=== PATIENT | male | born 1970 | race Caucasian/White ===

== ENCOUNTER 2020-06-20 10:12 | Emergency (ER) | payer SELFPAY ==
[~2020-06-20] VITALS: Ht 170.2 cm; Wt 82.0 kg
[2020-06-20] MEDS ORDERED: CYCLOBENZAPRINE10 MG PO (12:53)
[2020-06-20] MEDS ORDERED: NAPROXEN500 MG PO (12:53)
[2020-06-20 13:18] VITALS: BP 131/79
== END 2020-06-20 13:18 | disposition home or self-care (01) | DRG 552 ==
LOC: ED 10:12
DX: M51.26 Other intervertebral disc displacement, lumbar region (principal); J45.909 Unspecified asthma, uncomplicated; F17.210 Nicotine dependence, cigarettes, uncomplicated

== ENCOUNTER 2020-09-07 12:13 | Emergency (ER) | payer SELFPAY ==
[~2020-09-07 12:13] MED LIST: CYCLOBENZAPRINE10 MG PO; NAPROXEN500 MG PO
[2020-09-07] MEDS ORDERED: IBUPROFEN600 MG PO (14:29)
[2020-09-07 14:50] VITALS: BP 134/53
== END 2020-09-07 14:53 | disposition home or self-care (01) | DRG 558 ==
LOC: ED 12:13
DX: M76.822 Posterior tibial tendinitis, left leg (principal); J45.909 Unspecified asthma, uncomplicated; F17.210 Nicotine dependence, cigarettes, uncomplicated

== ENCOUNTER 2020-11-27 06:27 | Emergency (ER) | payer SELFPAY ==
[~2020-11-27] VITALS: Ht 170.2 cm; Wt 81.0 kg
[~2020-11-27 06:27] MED LIST changes: +IBUPROFEN600 MG PO
[2020-11-27 07:05] LABS: HEMATOCRIT 29.6 % (39.0-50.0); IMMATURE GRANULOCYTES 0.1 % (0.0-5.0); MEAN CELL VOLUME 59.6 fL CALC (80.0-100.0); MEAN CORPUSCULAR HGB 16.1 pG CALC (26.0-32.0); NEUT# 5.68 thou/uL (1.82-7.42); RED BLOOD COUNT 4.97 mill/uL (4.70-6.10); RED CELL DISTRI WIDTH 21.8 % (11.5-15.5)
[2020-11-27 07:20] LABS: ALBUMIN 4.3 g/dL (3.2-5.0); ALKALINE PHOSPHATASE 68 u/l (38-126); AMYLASE 50 u/l (30-110); ANION GAP 15 (6-22 (CALC)); BILIRUBIN, TOTAL 0.4 mg/dL (0.0-1.4); BUN 10 mg/dL (9-20); BUN/CREATININE RATIO 11 (12-20 (CALC)); CARBON DIOXIDE 23 mmol/l (22-30); CHLORIDE 101 mmol/l (95-108); CREATININE 0.9 mg/dL (0.7-1.3); GFR > 60 ML/MIN (>=60 (CALC)); GFR FOR AFR.AMER. > 60 ML/MIN (>=60 (CALC)); LIPASE 71 u/l (23-300); POTASSIUM 4.3 mmol/l (3.5-5.1); SGOT/AST 26 u/l (17-59); SODIUM 135 mmol/l (137-146); TOTAL PROTEIN 7.5 g/dL (6.3-8.2)
[2020-11-27 07:32] LABS: MYOGLOBIN 35 ng/mL (0 - 121)
[2020-11-27 10:43] LABS: URINE BILIRUBIN - DIPSTICK NEGATIVE (NEGATIVE); URINE BLOOD DIPSTICK NEGATIVE (NEGATIVE); URINE COLOR YELLOW; URINE GLUCOSE - DIPSTICK NEGATIVE (NEGATIVE); URINE KETONE NEGATIVE (NEGATIVE); URINE LEUK ESTERASE NEGATIVE (NEGATIVE); URINE NITRITE - DIPSTICK NEGATIVE (Negative); URINE PROTEIN - DIPSTICK NEGATIVE (NEG-TRACE); URINE SPECIFIC GRAVITY <=1.005; URINE UROBILINOGEN - DIPSTICK 0.2 E.U./dL (0.2)
[2020-11-27] MEDS ORDERED: ZOFRAN4 MG/TAB PO (13:24)
[2020-11-27] MEDS ORDERED: TORADOL PO (13:24)
[2020-12-01 10:41] VITALS: BP 94/68
== END 2020-11-27 13:44 | disposition home or self-care (01) | DRG 395 ==
LOC: ED 06:27
PROVIDERS: Emergency Medicine
DX: K63.9 Disease of intestine, unspecified (principal); J45.909 Unspecified asthma, uncomplicated; F17.210 Nicotine dependence, cigarettes, uncomplicated; Z20.822 Contact with and (suspected) exposure to COVID-19
CPT/HCPCS: Q9967

== ENCOUNTER 2020-12-18 12:56 | Inpatient (IN) | payer SELFPAY ==
[~2020-12-18] VITALS: Ht 170.2 cm; Wt 75.0 kg
[~2020-12-18 12:56] MED LIST changes: +TORADOL PO; +ZOFRAN4 MG/TAB PO
--- NOTE | 2020-12-18 13:10 | NUR ---
PATIENT TO ROOM VIA WHEELCHAIR AND PHYSICIAN AT BEDSIDE FOR EVAL
[2020-12-18 14:12] LABS: HEMATOCRIT 25.9 % (39.0-50.0); IMMATURE GRANULOCYTES 0.1 % (0.0-5.0); MEAN CORPUSCULAR HGB 16.3 pG CALC (26.0-32.0); MEAN CORPUSCULAR HGB CONC 26.3 g/dL CAL (32.0-36.0); NEUT# 4.69 thou/uL (1.82-7.42); RED BLOOD COUNT 4.18 mill/uL (4.70-6.10)
[2020-12-18 14:14] LABS: HEMOGLOBIN 6.8 g/dl (14.0-18.0)
[2020-12-18 14:18] LABS: ALKALINE PHOSPHATASE 63 u/l (38-126); AMYLASE 53 u/l (30-110); ANION GAP 12 (6-22 (CALC)); BILIRUBIN, TOTAL 0.3 mg/dL (0.0-1.4); BUN 6 mg/dL (9-20); BUN/CREATININE RATIO 7 (12-20 (CALC)); CARBON DIOXIDE 27 mmol/l (22-30); CHLORIDE 102 mmol/l (95-108); CREATININE 0.8 mg/dL (0.7-1.3); GFR > 60 ML/MIN (>=60 (CALC)); GFR FOR AFR.AMER. > 60 ML/MIN (>=60 (CALC)); LIPASE 104 u/l (23-300); POTASSIUM 4.6 mmol/l (3.5-5.1); SGOT/AST 30 u/l (17-59); SODIUM 137 mmol/l (137-146); TOTAL PROTEIN 7.1 g/dL (6.3-8.2)
[2020-12-18 14:25] LABS: ACT PARTIAL THROMBO TIME 21.4 SECONDS (20.0-32.5); PROTHROMBIN TIME 10.4 SECONDS (9.0-12.5)
[2020-12-18 14:37] LABS: URINE BILIRUBIN - DIPSTICK NEGATIVE (NEGATIVE); URINE BLOOD DIPSTICK NEGATIVE (NEGATIVE); URINE COLOR YELLOW; URINE GLUCOSE - DIPSTICK NEGATIVE (NEGATIVE); URINE KETONE NEGATIVE (NEGATIVE); URINE LEUK ESTERASE NEGATIVE (NEGATIVE); URINE PH 6.5 (4.5-8.0); URINE PROTEIN - DIPSTICK NEGATIVE (NEG-TRACE); URINE UROBILINOGEN - DIPSTICK 0.2 E.U./dL (0.2)
[2020-12-18 14:39] LABS: URINE NITRITE - DIPSTICK NEGATIVE (Negative)
[2020-12-18 16:38] VITALS: BP 181/86
--- NOTE | 2020-12-18 16:47 | NUR ---
RN START THE #1 PRBC V/S STABLE ( SEE CHART) CHECK WITH CHARGE NURSE ALVERTO HOLLOWAY
[2020-12-18 16:49] VITALS: BP 176/84
--- NOTE | 2020-12-18 17:15 | NUR ---
Reassessment of patient completed. No distress noted. PATIENT RECEIVING BLOOD TRANSFUSION NOT REACCION TO THE BLOOD
[2020-12-18 17:18] VITALS: BP 168/75
[2020-12-18 19:06] VITALS: BP 186/83
--- NOTE | 2020-12-18 19:20 | NUR ---
BEDSIDE REPORT RECEIVED FROM Jordyn ADAMS RN. CARE OF PT ASSUMED AT THIS TIME.
--- NOTE | 2020-12-18 19:30 | NUR ---
REPORT RECEIVED FROM Maryanne ANNA RN
--- NOTE | 2020-12-18 19:39 | NUR ---
TELEPHONE REPORT GIVEN TO Jordyn EPPS RN.
--- NOTE | 2020-12-18 19:50 | NUR ---
Admission Note Report Given to: Jordyn EPPS RN Transported by: Y Wheelchair Stretcher Transported with: Y Nurse Transporter Y Patent IV O2 Y Family Preservation Worker Location: ICU Y MS2
--- NOTE | 2020-12-18 19:53 | NUR ---
PHYSICAL ASSEMENT COMPLETTED AT THIS TIME. NORMAL HEART SOUNDS, CLEAR LUNG TONG BILATERALLY, ACTIVE BOWEL SOUNDS. PATIENT UP TO RESTROOM DURING ADMISSION ASSEMENT. PROVIDED PATIENT WITH WASHCLOTHS, TOWELS AND A NEW GOWN. #18 IN RIGHT AC SALINE LOCK. FLUSHED AND PATENT. 1/5TH OF GOLYTELY SOLUTION HAS BEEN DRANK BY PATIENT. ADVISED PATIENT HE NEEDED TO FINISH MUCH POSSIBLE AND HE IS TO BE NPO AT MIDNIGHT. REQUESTING PAIN MEDICATION AT THIS TIME STATES PAIN IS ABOUT 7/10, INFORMED PATIENT PAIN MEDICATION HAS BEEN ORDERED AD WILL BE GIVEN SOON ORDER IS RECEIVED.
--- NOTE | 2020-12-18 19:53 | NUR ---
PATIENT ARRIVED TO FLOOR ACCOMPANIED BY Maryanne ANNA RN.
--- NOTE | 2020-12-18 22:00 | NUR ---
APPEARS TO HAVE ECOMPLETED GOLYTELY.
--- NOTE | 2020-12-18 23:53 | NUR ---
PATIENT STATES, "YOU ARE AN HOUR LATE ON MY MEDICATION." EXPLAINED TO PATIENT MEDICATION IS PRN. MEDICATED PER EMAR, BEDSIDE TABLE WITHIN REACH AND CALL LIGHT
[2020-12-19] VITALS (14 sets, daily range): BP systolic 103–157; BP diastolic 56–76
--- NOTE | 2020-12-19 01:11 | NUR ---
BLOOD TRANSFUSION BEGAN AT THIS TIME. CO-SIGNER Maddie CROWE RN. PATIENT TOLERATED WELL. TEMP-97.9 HR-73 RESPIRATINS-18 B/P-132/74
--- NOTE | 2020-12-19 01:26 | NUR ---
Q15 VS TEMP-97.2 HR-60 RESPIRATIONS-18 B/P-133/69 PATIENT TOLERATING BLOOD WELL.
--- NOTE | 2020-12-19 02:17 | NUR ---
PATIENT SLEEPING, TOLERATING BLOOD PRODUCTS DEMIAN. TEMP-97.5 HR-60 RESPIRATIONS-18 B/P-103/56
--- NOTE | 2020-12-19 04:35 | NUR ---
BLOOD TRANSFUSION COMPLETEE
--- NOTE | 2020-12-19 05:37 | NUR ---
PATIENT CAUGHT SMOKING IN BATHROOM, CIGARRETTS AND DINING ROOM SERVER ROMOVED AND CARBURIZING FURNACE OPERATOR NOTIFIED
[2020-12-19 06:26] LABS: MEAN CORPUSCULAR HGB 19.2 pG CALC (26.0-32.0); MEAN CORPUSCULAR HGB CONC 28.5 g/dL CAL (32.0-36.0); RED BLOOD COUNT 4.74 mill/uL (4.70-6.10); RED CELL DISTRI WIDTH 25.7 % (11.5-15.5)
[2020-12-19 06:42] LABS: ANION GAP 13 (6-22 (CALC)); BUN 5 mg/dL (9-20); BUN/CREATININE RATIO 6 (12-20 (CALC)); CARBON DIOXIDE 25 mmol/l (22-30); CHLORIDE 104 mmol/l (95-108); CREATININE 0.9 mg/dL (0.7-1.3); GFR > 60 ML/MIN (>=60 (CALC)); GFR FOR AFR.AMER. > 60 ML/MIN (>=60 (CALC)); MAGNESIUM 2.1 mg/dL (1.6-2.3); POTASSIUM 4.5 mmol/l (3.5-5.1); SODIUM 138 mmol/l (137-146)
--- NOTE | 2020-12-19 07:00 | NUR ---
RECIEVED REPORT FROM JEWEL LYMAN
[2020-12-19 07:01] LABS: HEMATOCRIT 31.9 % (39.0-50.0); HEMOGLOBIN 9.1 g/dl (14.0-18.0); MEAN CELL VOLUME 67.3 fL CALC (80.0-100.0)
--- NOTE | 2020-12-19 07:17 | NUR ---
PT TRANSFERED TO OR VIA STRETCHER ACCOMPAINED BY OR STAFF
--- NOTE | 2020-12-19 09:04 | NUR ---
PT ARRIVED BACK TO [facility] ROOM 269 VIA STRETCHER ACCOMPAINED BY OR STAFF. PT ASSISTED BACK TO BED. PT IS A/O X3. ASSESSMENT AND VITALS COMPLETED. RESPIRATIONS ARE EVEN AND UNLABORED WITH NO DISTRESS NOTED. LUNG SOUNDS CLEAR. HEART RHYTHM NORMAL WITH TELE IN PLACE. BOWEL SOUNDS ARE ACTIVE. PULSES STRONG. #18G RAC INFUSING WITH IVF PER ORDER, SITE REMAINS HEALTHY AND PATENT. SKIN INTACT. PT DENIES OF ANY PAINS. SCDS APPLIED. ALL SAFETY PRECAUTIONS ARE IN PLACE WITH CALL LIGHT IN REACH. WILL CONTINUE TO MONITOR.
--- NOTE | 2020-12-19 10:50 | NUR ---
OR NOTIFIED OF LAP RIGHT HEMICOLECETOMY- POSSIBLE TRANSVERSE. LAB INFORMED OF 2 UNITS OF PRBC FOR TOMORROW SURGERY.
--- NOTE | 2020-12-19 10:50 | NUR ---
DR BARRAGAN AND ROSE,ANRP AT BEDSIDE
--- NOTE | 2020-12-19 10:58 | NUR ---
RUDDY NOTIFIED OF SURGERY SCHEDULED TOMORROW.
--- NOTE | 2020-12-19 12:05 | NUR ---
PT SLEEPING IN LOW FOLWERS POSITION. REPSIRATIONS REMAINS EVEN AND UNLABORED WITH NO DISTRESS NOTED. IVF INFUSING AK ORDER, SITE REMAINS HEALTHY AND PATENT. SCDS IN PLACE.TELE MONITORING IN PLACE. NO SIGNS OF ANY ZANDER OR DISCOMFORTS AT THIS TIME. ALL SAFETY PRECAUTIONS ARE IN PLACE WITH CALL LIGHT IN REACH. WILL CONTINUE TO MONITOR.
--- NOTE | 2020-12-19 12:40 | NUR ---
DR HAMPTON AT BEDSIDE
--- NOTE | 2020-12-19 14:00 | NUR ---
OBTAINED CONSENT. PT VERBLAIZED UNDERSTANDING WITH NO QUESTIONS OR CONCERNS.PT COMPLAINS OF 9/10 ABD PAIN. PT MEDICATED PER EMAR. WILL CONTINUE TO MONITOR.
--- NOTE | 2020-12-19 15:25 | NUR ---
PT RESTING IN SEMI FOWLERS POSITION. RESPIRATIONS ARE EVEN AND UNLABORED WITH NO DISTRESS NOTED. IVF INFUSING PER ORDER, SITE REMAINS HEALTHY AND PATENT. TELE MONITORING IN PLACE. PT STATES PAIN IS NOW 7/10 AFTER DILUADID. SCDS REMAINS IN PLACE. PT DENIES OF ANY ADDITOIONAL NEEDS. ALL SAFETY PRECAUTIONS ARE IN PLACE WITH CALL LIGHT IN REACH. WILLM CONTINUE TO MONITOR.
[2020-12-20] VITALS (11 sets, daily range): BP systolic 114–161; BP diastolic 64–81
--- NOTE | 2020-12-20 05:29 | NUR ---
12/19/202009 PATIENT RESTING IN BED WATCHING MOVIES FROM PHONE. ASSESSMENT COMPLETE. VERBAL COMMUNICATION OF NPO STATUS AT MIDNIGHT FOR SURGERY IN A.M. PATIENT VERBALIZES UNDERSTANDING, NO CONCERNS EXPRESSED AT THIS TIME. CALL LIGHT WITHIN REACH. INSTRUCTED TO CALL FOR ASSISTANCE. BED IN LOW POSITION AND LOCKED.
--- NOTE | 2020-12-20 07:00 | NUR ---
RECIEVED REPORT FROM TIKA RN
[2020-12-20 07:13] LABS: HEMOGLOBIN 8.6 g/dl (14.0-18.0); MEAN CELL VOLUME 67.3 fL CALC (80.0-100.0); MEAN CORPUSCULAR HGB 19.3 pG CALC (26.0-32.0); MEAN CORPUSCULAR HGB CONC 28.7 g/dL CAL (32.0-36.0); RED BLOOD COUNT 4.46 mill/uL (4.70-6.10); RED CELL DISTRI WIDTH 25.6 % (11.5-15.5)
[2020-12-20 07:14] LABS: ANION GAP 11 (6-22 (CALC)); BUN 5 mg/dL (9-20); BUN/CREATININE RATIO 6 (12-20 (CALC)); CARBON DIOXIDE 26 mmol/l (22-30); CHLORIDE 106 mmol/l (95-108); CREATININE 0.9 mg/dL (0.7-1.3); GFR > 60 ML/MIN (>=60 (CALC)); GFR FOR AFR.AMER. > 60 ML/MIN (>=60 (CALC)); POTASSIUM 4.3 mmol/l (3.5-5.1); SODIUM 138 mmol/l (137-146)
--- NOTE | 2020-12-20 08:10 | NUR ---
PT RESTING IN SEMI FOWLERS POSITION. PT IS A/OX3.ASSESSMENT AND VITALS COMPLETED. REPIRATIONS ARE EVEN AND UNLABORED WITH NO DISTRESS NOTED. LUNG SOUNDS ARE CLEAR. HEART RHYTHM NORMAL WITH TELE IN PLACE. BOWEL SOUNDS ARE ACTIVE.PULSES STRONG.SCD AT BEDSIDE.#18G RAC INFUSING WITH IVF PER ORDER, SITE REAMINS HEALTHY AND PATENT.SKIN INTACT.PT COMPLAINS OF 6/10 PAIN, OR CALLED. LUMBER SALES SUPERVISOR INFORMED NO PAIN MEDICATION IS TO BE GIVEN. PT INFORMED. SCHEDULED LAP RIGHT HEMICOLECTOMY AT 0900.PT DENIES OF ANY ANY QUESTIONS.ALL SAFETY PRECAUTIONS ARE IN PLACE WITH CALL LIGHT IN REACH.WILL CONTINUE TO MONITOR.
--- NOTE | 2020-12-20 10:05 | NUR ---
PT TRANSPORTED TO OR VIA STREATCHER IN STANLE CONDITION ACCOMPAINED BY OR STAFF.
--- NOTE | 2020-12-20 14:50 | NUR ---
PT ARRIVED BACK TO [facility] ROOM 269 VIA BED.RECIEVED REPORT FROM JEWEL OSULLIVAN. RIGHT HEMICOLECTOMY BY DR HAMPTON. PT IS A/O X3 BUT DROWSY.VITALS COMPELETED. BP 160/76, HR 78. RESPIRATIONS ARE EVEN AND UNLABORED ON 3L NC, O2 SAT 96%. #18G LAC INFUSING WITH IVF PER ORDER, SITE REMAINS HEALTHY AND PATENT. DRESSING TO ABD CDI. ABD BINDER IN PLACE. SCDS APPLIED. PT EDUCATD ON NPO STATUS WITH ICE CHIPS ONLY. VARMA CATH IN PLACE, TUBING PATENT. CLEAR YELLOW URINE NOTED. PT COMPLAINS OF 9/10 PAIN, PT NFORMED PAIN MEDICATION IS YET TO BE DUE. PT VERBLAIZED UNDERSTANDING. PT DENIES OF ANY NEEDS AT THIS TIME. ALL SAFETY PECAUTIONS ARE IN PLACE WITH CALL LIGHT IN REACH. WILL CONTINUE TO MONITOR.
--- NOTE | 2020-12-20 15:55 | NUR ---
PT RESTING IN SEMI FOWLERS POSITION. RESPIRATIONS ARE EVEN AND UNLABORED ON 3L NC, O2 SAT 94%. PT REMAINS STABLE 155/75, HR 82. IVF INFUSING PER ORDER, SITE REMAINS HEALTHY AND PATENT. VARMA CATH IN PLACE, YELLOW CLEAR URINE NOTED. ABD BINDR NREMAINS IN PLACE. PT COMPLAINS OF 10/10 PAIN. DILAUDID 1MG ADMINISTERED. PT DENIES OF ANY ADDITIONAL NNEDS. ALL SAFETY PRECAUTIONS ARE IN PLACE WITH CALL LIGHT IN REACH. WILL CONTINUE TO MONITOR.
--- NOTE | 2020-12-20 20:00 | NUR ---
PHYSICAL ASSESMENT COMPLETE. PT C/O ABDOMINAL POST OP PAIN AND DISCOMFORT. SCHEDULED MEDICATIONS AND PRN MEDICATION ADMINISTERED, SEE E-MAR. PT DENIES ANY NEEDS AT THIS TIME. PLAN OF CARE REVIEWED, PT DENIES QUESTIONS, VERBALIZES UNDERSTANDING. ITEMS WITHIN REACH, BED LOCKED IN LOW POSITION W/ BEDRAILS UP X2. CALL DE JESUS WITHIN REACH, AGREES TO CALL PRN.
--- NOTE | 2020-12-21 | NUR ---
PT LAYING IN BED WITH EYES CLOSED, APPEARS TO BE SLEEPING, APPEARS COMFORTABLE AND IN NO DISTRESS. RESPIRATIONS REGULAR AND UNLABORED. ITEMS REMAIN WITHIN REACH, CALL DE JESUS REMAINS WITHIN REACH. BED REMAINS LOCKED AND IN LOW POSITION WITH BEDRAILS UP X2. WILL CONTINUE TO MONITOR.
[2020-12-21 00:14] VITALS: BP 134/78
[2020-12-21 04:51] VITALS: BP 128/78
[2020-12-21 05:59] LABS: HEMATOCRIT 29.6 % (39.0-50.0); HEMOGLOBIN 8.4 g/dl (14.0-18.0); IMMATURE GRANULOCYTES 0.1 % (0.0-5.0); MEAN CELL VOLUME 67.3 fL CALC (80.0-100.0); MEAN CORPUSCULAR HGB 19.1 pG CALC (26.0-32.0); MEAN CORPUSCULAR HGB CONC 28.4 g/dL CAL (32.0-36.0); NEUT# 11.31 thou/uL (1.82-7.42); RED BLOOD COUNT 4.4 mill/uL (4.70-6.10); RED CELL DISTRI WIDTH 26.6 % (11.5-15.5)
[2020-12-21 06:24] LABS: ANION GAP 12 (6-22 (CALC)); BUN 6 mg/dL (9-20); BUN/CREATININE RATIO 6 (12-20 (CALC)); CARBON DIOXIDE 28 mmol/l (22-30); CHLORIDE 101 mmol/l (95-108); CREATININE 1.1 mg/dL (0.7-1.3); GFR > 60 ML/MIN (>=60 (CALC)); GFR FOR AFR.AMER. > 60 ML/MIN (>=60 (CALC)); MAGNESIUM 1.7 mg/dL (1.6-2.3); POTASSIUM 4.1 mmol/l (3.5-5.1); SODIUM 136 mmol/l (137-146)
[2020-12-21 08:08] VITALS: BP 145/77
--- NOTE | 2020-12-21 08:15 | NUR ---
VARMA REMOVED AT THIS TIME. PT TOLERATED WELL. ENCOURAGED PT TO VOID IN URINAL. WILL CONTINUE TO MONITOR. ASSISTED PT OOB TO CHAIR AT THIS TIME. CALL LIGHT WITHIN REACH.
--- NOTE | 2020-12-21 09:50 | NUR ---
PT VOIDED 50ML CLEAR YELLOW OUTPUT IN URINAL AT THIS TIME.
--- NOTE | 2020-12-21 10:12 | NUR ---
PT ABULATING IN PABLO WITH STAND BY ASSIST. PT AMBULATED WITH STEADY GAIT. ABD BINDER IN PLACE. DRESSING CDI. NO APPARENT DISTRESS NOTED. ASSISTED PT BACK INTO BED. CALL LIGHT WITHIN REACH. WILL CONTINUE TO MONITOR.
[2020-12-21 10:20] VITALS: BP 164/72
[2020-12-21 15:03] VITALS: BP 155/66
[2020-12-21 18:53] VITALS: BP 142/75
--- NOTE | 2020-12-21 22:18 | NUR ---
PHYSICAL ASSESMENT COMPLETE. PT CURRENTLY DENIES PAIN OR DISCOMFORT. PT UP AMBULATING FOR 15 MINUTES. SCHEDULED MEDICATIONS AND PRN MEDICATION ADMINISTERED, SEE E-MAR. PT DENIES ANY NEEDS AT THIS TIME. PLAN OF CARE REVIEWED, PT DENIES QUESTIONS, VERBALIZES UNDERSTANDING. ITEMS WITHIN REACH, BED LOCKED IN LOW POSITION W/ BEDRAILS UP X2. CALL DE JESUS WITHIN REACH, AGREES TO CALL PRN.
[2020-12-22 04:00] VITALS: BP 159/80
--- NOTE | 2020-12-22 04:18 | NUR ---
PT RESTING IN BED. PT C/O OF ABDOMINAL PAIN. PT RECEIVED PRN PAIN MEDICATION RESP EVEN AND UNLABORED. PT VOICES NO NEEDS OR COMPLAINTS AT THIS TIME. CALL LIGHT IN REACH, CONTINUE TO MONITOR.
[2020-12-22 07:28] VITALS: BP 154/79
--- NOTE | 2020-12-22 07:28 | NUR ---
PT A/O X3. PERRLA. GOOD HAND GRASP. <3 CAP REFILL. STRONG RADIAL/PEDAL PULSES. ABDOMINAL BINDER IN PLACE. BOWEL SOUNDS ACTIVE X4. PT C/O ACHING ABDOMEN PAIN; 9/10 ON PAIN SCALE. 1MG MORPHINE IV GIVEN. PT REPOSITIONED. LAST BM 12/18/20 #18 RAC D5 W/K @125. IV HEALTHY. LUNGS CLEAR. SKIN INTACT. SAFETY PRECAUTIONS IN PLACE. CALL LIGHT IN REACH. WILL CONTINUE TO MONITOR.
--- NOTE | 2020-12-22 12:15 | NUR ---
PT RESTING. NO S/S OF DISTRESS. IV FLUIDS FLOWING. CALL LIGHT IN REACH. WILL CONTINUE TO MONITOR.
--- NOTE | 2020-12-22 13:32 | NUR ---
PT ABDOMINAL BINDER OPENED AND DRESSING REMOVED. BENJY TO MID ABDOMEN INTACT. SMALL AMOUNT OF SEROSANGUINOUS DRAINAGE NOTED. [address]; 2 TO LEFT SIDE AND ONE TO RIGHT LOWER ABDOMEN. SMALL BLISTER NOTED NEAR RIGHT DRESSING AREA. CLEANED ABDOMEN W/ SALINE. 2 ABD PADS APPLIED W/ NONSTICK TAPE.. PT TOLERATED WELL.
[2020-12-22 14:57] VITALS: BP 178/80
--- NOTE | 2020-12-22 16:05 | NUR ---
PT RESTING. NO S/S OF DISTRESS. CALL LIGHT IN REACH. WILL CONTINUE TO MONITOR.
--- NOTE | 2020-12-22 20:00 | NUR ---
PHYSICAL ASSESMENT COMPLETE. PT C/O PAIN AND DISCOMFORT. SCHEDULED MEDICATIONS AND PRN MEDICATION ADMINISTERED, SEE E-MAR. PT DENIES ANY NEEDS AT THIS TIME. PLAN OF CARE REVIEWED, PT DENIES QUESTIONS, VERBALIZES UNDERSTANDING. ITEMS WITHIN REACH, BED LOCKED IN LOW POSITION W/ BEDRAILS UP X2. CALL DE JESUS WITHIN REACH, AGREES TO CALL PRN.
[2020-12-22 20:28] VITALS: BP 165/90
[2020-12-23] VITALS (8 sets, daily range): BP systolic 151–196; BP diastolic 70–90
--- NOTE | 2020-12-23 04:00 | NUR ---
PT RESTING IN BED, NO SIGNS OF DISTRESS NOTED, RESP EVEN AND UNLABORED. PT VOICES NO NEEDS OR COMPLAINTS AT THIS TIME. CALL LIGHT IN REACH, CONTINUE TO MONITOR.
[2020-12-23 06:30] LABS: HEMATOCRIT 33.1 % (39.0-50.0); HEMOGLOBIN 9.5 g/dl (14.0-18.0); IMMATURE GRANULOCYTES 0.2 % (0.0-5.0); MEAN CORPUSCULAR HGB 19.8 pG CALC (26.0-32.0); MEAN CORPUSCULAR HGB CONC 28.7 g/dL CAL (32.0-36.0); NEUT# 8.76 thou/uL (1.82-7.42); RED BLOOD COUNT 4.8 mill/uL (4.70-6.10); RED CELL DISTRI WIDTH 29.1 % (11.5-15.5)
[2020-12-23 06:38] LABS: ALBUMIN 3.2 g/dL (3.2-5.0); ALKALINE PHOSPHATASE 63 u/l (38-126); ANION GAP 13 (6-22 (CALC)); BUN 4 mg/dL (9-20); BUN/CREATININE RATIO 5 (12-20 (CALC)); CARBON DIOXIDE 25 mmol/l (22-30); CHLORIDE 103 mmol/l (95-108); CREATININE 0.7 mg/dL (0.7-1.3); GFR > 60 ML/MIN (>=60 (CALC)); GFR FOR AFR.AMER. > 60 ML/MIN (>=60 (CALC)); POTASSIUM 4.2 mmol/l (3.5-5.1); SGOT/AST 17 u/l (17-59); SODIUM 136 mmol/l (137-146)
[2020-12-23 06:52] LABS: BILIRUBIN, TOTAL 0.6 mg/dL (0.0-1.4)
--- NOTE | 2020-12-23 08:00 | NUR ---
PT A/O X3. PERRLA. STRONG HAND GRASPS. STRONG RADIAL AND PEDAL PULSES. #18 RAC D5 W/K @ 75. IV SITE HEALTHY. ABDOMINAL DRESSING CDI. ABDOMINAL BINDER IN PLACE. ABDOMEN DISTENED. LAST BM 12/23/20. PT C/O ACHING ABDOMINAL PAIN; 12/18. 1MG DILAUDID IV GIVEN AND REPOSITIONED FOR COMFORT. NO EDEMA. SAFETY PRECAUTIONS IN PLACE. CALL LIGHT IN REACH. WILL CONTINUE TO MONITOR.
--- NOTE | 2020-12-23 09:10 | NUR ---
PT AMBULATING IN PABLO W/ ASSISTANCE BY JEWEL DAS. PT TOLERATING WELL.
--- NOTE | 2020-12-23 12:00 | NUR ---
PT EATING LUNCH. REPOSITIONED FOR COMFORT. IV IN PLACE. CALL LIGHT IN REACH. WILL CONTINUE TO MONITOR.
--- NOTE | 2020-12-23 15:50 | NUR ---
PT AMBULATING IN HALLS ALONE. TOLERATING WELL.
--- NOTE | 2020-12-23 16:00 | NUR ---
PT RESTING. NO S/S OF DISTRESS. CALL LIGHT IN REACH. WILL CONTINUE TO MONITOR.
--- NOTE | 2020-12-23 20:00 | NUR ---
RECEIVED REPORTV FROM JONAH ORTEGA RESTING IN BED, WATCHING TV, WITH SALINE LOCK ON RAC PATENT FLUSHES WELL, BOWEL SOUNDS ACTIVE, ABDOMINAL DRESSING CDI BINDER IN PLACE, PATIENT PROVIDE WITH SPIROMETER EDUCATED ON THE USED, INSPIRATORY VOLUME AT 1000, PATIENT C/O OF PAIN PRN DILAUDID GIVEN WILL REEVALUATE.
--- NOTE | 2020-12-24 00:41 | NUR ---
PATIENT SLEEPING AT THIS TIME, BREATHING EVEN UNLABOREDM CALL LIGHT AT REACH.
[2020-12-24 04:00] VITALS: BP 151/83
--- NOTE | 2020-12-24 04:15 | NUR ---
PATIENT RESTING IN BED WITH EYES CLOSED, BREATHIMG EVEN UNLABORED CALL LIGHT AT REACH.
--- NOTE | 2020-12-24 07:00 | NUR ---
RECIEVED REPORT FROM JEWEL DO
--- NOTE | 2020-12-24 08:20 | NUR ---
DR HAMPTON AT BEDSIDE
[2020-12-24] MEDS ORDERED: PERCOCET 5/325M1 TAB PO (08:45)
[2020-12-24] MEDS ORDERED: ZOFRAN4 MG/TAB PO (08:47)
[2020-12-24 08:54] VITALS: BP 148/84
--- NOTE | 2020-12-24 08:54 | NUR ---
PT RESTING IN SEMI FOWLERS POSITION. PT IS A/O X3. ASSESSMENT AND VITALS COMPLETED. REPSIRATIONS ARE EVEN AND UNLABORED WITH NO DISTRESS NOTED ON ROOM AIR. LUNG SOUNDS ARE CLEAR. HEART RHYTHM NORMAL. BOWEL SOUNDS ARE ACTIVE. #18G LAC INFILTRATED, NEW IV TO BE STARTED. DRESSING TO ABD CDI, ABD BINDER REAPPLIED. PT C/O OF 8/10 ABD PAIN. PT TO BE MEDICATED PER EMAR. PT DENIES OF ANY ADDITONAL NEEDS AT THIS TIME. ALL SAFETY PRECAUTIONS ARE IN PLACE WITH CALL LIGHT IN REACH. WILL CONTINUE TO MONITOR.
[2020-12-24 09:57] VITALS: BP 148/84
--- NOTE | 2020-12-24 10:06 | NUR ---
#18G RAC INFILTRATED. IV REMOVED WITH CATH STILL INTACT. DIDALDID IV WASTED. PO PAIN MEDICATION TO BE ADMINISTERED WHEN AVAILABLE. WILL CONTINUE TO MONITOR.
--- NOTE | 2020-12-24 11:17 | NUR ---
BENJY REMOVED PER ORDER. DRY DRESSING APPLIED SECURED WITH TAPE. PERCOCET ADMINISTERED. PT INFORMED OF DC. PT DENIES OF ANY ADDITIONAL NEEDS. ALL SAFETY PRECAUTIONS ARE IN PLACE WITH CALL LIGHT IN REACH. WILL CONTINUE TO MONITOR.
--- NOTE | 2020-12-24 12:21 | NUR ---
PT EDUCATED ON DC INSTRUCTIONS AND NEW MEDICATIONS TO BE PICKED UP AT [facility]. WORK NOTED PROVIDED. PERSONAL BELONGINGS GIVEN BACK TO PT. PT REQUEST TO GO DOWN STAIRS AND CALL [facility]. OFFERED TO CALL, PT REFUSES.
--- NOTE | 2020-12-24 12:24 | NUR ---
Discharge instructions given. Patient verbalizes understanding of same. Discharged in stable condition via Wheelchair to Home with staff. All belongings sent with pt. PT DC HOME IN STABLE CONDITION VIA WHEELCHAIR ACCOMPAINED BY COLLIN MINOR WITH ALL DC OINSTRUCTIONS AND BELONGINGS
== END 2020-12-24 12:24 | disposition home or self-care (01) | DRG 330 ==
LOC: ED 12:56 → ED-I 14:46 → ED 15:05 → MS2 15:06
PROVIDERS: Nurse Practitioner; Nurse Practitioner Family; Surgery; ADMIT Internal Medicine; ATTEND Internal Medicine
PROC: 30233N1 Transfusion of Nonautologous Red Blood Cells into Peripheral Vein, Percutaneous Approach (ICD-10-PCS; 2020-12-18)
PROC: 30233N1 Transfusion of Nonautologous Red Blood Cells into Peripheral Vein, Percutaneous Approach (ICD-10-PCS; 2020-12-19)
PROC: 0DBN8ZX Excision of Sigmoid Colon, Via Natural or Artificial Opening Endoscopic, Diagnostic (ICD-10-PCS; 2020-12-19)
PROC: 0DBL8ZX Excision of Transverse Colon, Via Natural or Artificial Opening Endoscopic, Diagnostic (ICD-10-PCS; 2020-12-19)
PROC: 3E0H8KZ Introduction of Other Diagnostic Substance into Lower GI, Via Natural or Artificial Opening Endoscopic (ICD-10-PCS; 2020-12-19)
PROC: 0DTF0ZZ Resection of Right Large Intestine, Open Approach (ICD-10-PCS; principal; 2020-12-20)
DX: C18.2 Malignant neoplasm of ascending colon (principal); C77.2 Secondary and unspecified malignant neoplasm of intra-abdominal lymph nodes; C78.6 Secondary malignant neoplasm of retroperitoneum and peritoneum; D62 Acute posthemorrhagic anemia; D12.5 Benign neoplasm of sigmoid colon; D12.3 Benign neoplasm of transverse colon; J45.909 Unspecified asthma, uncomplicated; Z20.822 Contact with and (suspected) exposure to COVID-19
CPT/HCPCS: J0131; J1756; J1956; J2710; P9016; S0164